=== PATIENT | male | born 1980 | race Caucasian/White ===

== ENCOUNTER 2021-10-08 13:08 | Emergency (ER) | payer MEDICARE, MEDICAID ==
[~2021-10-08] VITALS: Ht 182.9 cm; Wt 74.8 kg
[2021-10-08 13:10] VITALS: BP 109/56
--- NOTE | 2021-10-08 13:13 | NUR ---
BIBA BLS TO ER BED 2
[2021-10-08] MEDS ORDERED: KETOROLAC 30 MG/ML VIAL IM ONE (13:25)
[2021-10-08] MEDS ORDERED: BACITRACIN OINT 500 UNITS/GM PKT TP ONE (13:25)
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
[2021-10-08] MEDS ORDERED: LIDOCAINE 2% 1000 MG/50 ML VIAL INJ ONE (14:15)
[2021-10-08] MEDS ORDERED: LIDOCAINE MPF 1% 10 MG/ML VIAL INJ ONE (14:15)
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
--- NOTE | 2021-10-08 14:22 | NUR ---
PA LEON AT BEDSIDE CLOSING LACERATION. TOOK OUT LIDOCAINE 2% FOR PA LEON TO ADMINISTER AT BEDSIDE.
[2021-10-08] MEDS ORDERED: IBUP-2213 PO (14:47)
[2021-10-08] MEDS ORDERED: BACI1PAC6 TP (14:47)
[2021-10-08 15:05] VITALS: BP 118/71
--- NOTE | 2021-10-08 15:05 | NUR ---
Patient discharged with v/s stable. Written and verbal after care instructions given and explained. Patient alert, oriented and verbalized understanding of instructions. Ambulatory with steady gait. All questions addressed prior to discharge. ID band removed. Patient advised to follow up with PMD. Rx of BACITRACIN ZINC, IBUPROFEN given. Patient educated on indication of medication including possible reaction and side effects. Opportunity to ask questions provided and answered.
== END 2021-10-08 15:05 | disposition home or self-care (01) ==
LOC: MED 13:08
DX: S51.811A Laceration without foreign body of right forearm, initial encounter (principal); S51.812A Laceration without foreign body of left forearm, initial encounter; W25.XXXA Contact with sharp glass, initial encounter; Y93.89 Activity, other specified; Y92.89 Other specified places as the place of occurrence of the external cause; Y99.8 Other external cause status
CPT/HCPCS: 12004; 73090; 90715; 99284; J1885; J2001; 99283

== ENCOUNTER 2023-08-21 02:41 | Emergency (ER) | payer MEDICARE, MEDICAID ==
[~2023-08-21] VITALS: Ht 182.9 cm; Wt 95.3 kg
[~2023-08-21 02:41] MED LIST: BACI-418 TP; IBUP-2213 PO
[2023-08-21] MEDS ORDERED: MIDAZOLAM 5 MG/5 ML VIAL ONE (02:48)
[2023-08-21] MEDS ORDERED: HALOPERIDOL IM 5 MG/ML VIAL ONE (02:48)
[2023-08-21 02:49] VITALS: RESP 24
[2023-08-21] MEDS ORDERED: MIDAZOLAM 5 MG/5 ML VIAL IM ONE (02:50)
[2023-08-21] MEDS ORDERED: HALOPERIDOL IM 5 MG/ML VIAL IM ONE (02:50)
[2023-08-21 03:26] LABS: BASOPHILS % (AUTO) 0.4 % (0.0-2.0); EOSINOPHILS # (AUTO) 0.2 K/uL (0-0.4); EOSINOPHILS % (AUTO) 1.8 % (0.0-4.0); HEMATOCRIT 35.6 % (36-52); HEMOGLOBIN 12.1 g/dL (12.0-18.0); LYMPHOCYTES # (AUTO) 1.5 K/uL (2.0-11.5); LYMPHOCYTES % (AUTO) 12.5 % (20.5-51.1); MEAN CORPUSCULAR HEMOGLOBIN 31 pg (27-31); MEAN CORPUSCULAR HGB CONC 34 g/dL (33-37); MONOCYTES # (AUTO) 0.9 K/uL (0.8-1.0); MONOCYTES % (AUTO) 7.8 % (1.7-9.3); NEUTROPHILS # (AUTO) 9.2 K/uL (1.8-7.7); NEUTROPHILS % (AUTO) 77.5 % (42.2-75.2); PLATELET COUNT (AUTO) 423 K/uL (140-450); RED BLOOD CELL COUNT(AUTO) 3.87 MIL/uL (4.20-6.10); RED CELL DISTRIBUTION WIDTH 13.4 % (11.6-13.7); WHITE BLOOD COUNT (AUTO) 11.8 K/uL (4.8-10.8)
[2023-08-21 03:35] LABS: APPEARANCE,URINE CLEAR (CLEAR); BILIRUBIN,URINE NEGATIVE (NEGATIVE); BLOOD, URINE 3+ (NEGATIVE); COLOR,URINE YELLOW (YELLOW); LEUKOCYTE ESTERASE ,URINE TRACE (NEGATIVE); NITRITE, URINE NEGATIVE (NEGATIVE); PROTEIN,URINE 2+ (NEGATIVE); UGLUCOSE NEGATIVE (NEGATIVE)
[2023-08-21 03:46] LABS: RBC,URINE 11-20 (MOD) /HPF (0-5)
[2023-08-21 03:47] LABS: BACTERIA,URINE 10-30 (MOD) /HPF (None Seen); SQUAMOUS EPITHELIAL CELL,UR 4-10 (MOD) /LPF (0-3 (FEW))
[2023-08-21 03:49] LABS: FINE GRANULAR CASTS,URINE 0-10 /LPF (None Seen)
[2023-08-21 03:51] LABS: INR 0.96 (0.8-1.2); PARTIAL THROMBOPLASTIN TIME 27.4 secs (22-35.6); PROTHROMBIN TIME 10.1 secs (10.8-13.4)
[2023-08-21 03:54] LABS: AMPHETAMINE, URINE POSITIVE ng/ml (NEG <=1000); BARBITURATE, URINE NEGATIVE ng/ml (NEG <=200); BENZODIAZEPINE, URINE NEGATIVE ng/mL (NEG <=200); CANNABINOID, URINE POSITIVE ng/mL (NEG <=50); COCAINE, URINE NEGATIVE ng/mL (NEG <=300); OPIATE, URINE NEGATIVE ng/mL (NEG <=2000); PHENCYCLIDINE SCREEN,URINE NEGATIVE ng/mL (NEG <=25)
[2023-08-21 03:57] LABS: ALANINE AMINOTRANSFERASE 21 U/L (12-78); ALBUMIN 3.4 g/dL (3.4-5.0); ALCOHOL, BLOOD < 3 mg/dL (<10); ALKALINE PHOSPHATASE 101 U/L (50-136); ANION GAP 19.8 (8-16); ASPARTATE AMINOTRANSFERASE 22 U/L (15-37); CALCIUM 8.9 mg/dL (8.5-10.1); CARBON DIOXIDE 19.3 mmol/L (21-32); CHLORIDE 99 mmol/L (98-107); CREATININE 1.5 mg/dL (0.6-1.3); GFR ARICAN-AMERICAN 66 mL/min (>90); GFR NON ARICAN-AMERICAN 54 mL/min (>90); GLUCOSE 136 mg/dL (74-106); POTASSIUM 3.1 mmol/L (3.5-5.1); SODIUM SERUM 135 mmol/L (136-145); THYROID STIMULATING HORMONE 2.16 uIU/mL (0.34-3.74); TOTAL BILIRUBIN 0.2 mg/dL (0.0-1.0); TOTAL PROTEIN, SERUM 7.8 g/dL (6.4-8.2); UREA NITROGEN, BLOOD 21 mg/dL (7-18)
[2023-08-21 04:03] LABS: ACETAMINOPHEN < 0.5 ug/ml (10-30); SALICYLATE < 2.8 mg/dL (2.8-20.0)
[2023-08-21 05:57] VITALS: BP 97/71; PULSE 86; RESP 24; O2SAT 96
== END 2023-08-21 06:00 | disposition home or self-care (01) ==
LOC: MED 02:41
DX: F15.129 Other stimulant abuse with intoxication, unspecified (principal); N17.9 Acute kidney failure, unspecified; R45.1 Restlessness and agitation; Z79.899 Other long term (current) drug therapy
CPT/HCPCS: 36415; 70450; 80053; 80305; 81001; 84443; 85025; 85610; 85730; 87086; 93005; 96372; 99291; G0480; G0482; J1630; J2250